=== PATIENT | male | born 1980 | race Caucasian/White ===

== ENCOUNTER 2018-01-23 13:35 | Emergency (ER) | payer OTHER ==
[2018-01-23] MEDS ORDERED: Sodium Chloride 0.9% 1,000 ML IV ONE (14:56)
--- NOTE | 2018-01-23 15:01 | C.PDOC ---
History Of Present Illness 37 year old male presents to ED complaining of right flank pain radiating to right groin associated with dysuria x3 days. Patient states he has a history of kidney stones, current pain feels similar to previous episodes. Patient reports he had blood work done by Dr. Shamir Patterson yesterday, has not had any imaging yet. He admits to nausea, but denies vomiting, diarrhea, testicular pain , fever, dysuria, hematuria. Time Seen by Provider: 01/23/18 14:43 Chief Complaint (Nursing): Male Genitourinary History Per: Patient History/Exam Limitations: no limitations Onset/Duration Of Symptoms: Days Current Symptoms Are (Timing): Still Present Severity: Moderate Quality Of Discomfort: "Pain" Recent travel outside of the [place]: No Past Medical History Reviewed: Historical Data, Nursing Documentation, Vital Signs Vital Signs: Last Vital Signs Temp 98.5 F 01/23/18 17:28 Pulse 70 01/23/18 17:28 Resp 16 01/23/18 17:28 BP 130/70 01/23/18 17:28 Pulse Ox 97 01/28/18 08:28 - Medical History PMH: Kidney Stones Surgical History: No Surg Hx Family History: States: No Known Family Hx - Social History Hx Alcohol Use: No Hx Substance Use: No Review Of Systems Constitutional: Negative for: Fever, Chills Cardiovascular: Negative for: Chest Pain Respiratory: Negative for: Shortness of Breath Gastrointestinal: Positive for: Nausea. Negative for: Vomiting, Diarrhea Genitourinary: Positive for: Dysuria. Negative for: Hematuria, Other ( testicular pain) Musculoskeletal: Positive for: Back Pain (right flank pain radiating to right groin. ) Physical Exam - Physical Exam Appears: Well, Non-toxic, Other (in moderate pain) Skin: Warm, Dry, No Rash Head: Normacephalic Eye(s): bilateral: Normal Inspection Oral Mucosa: Moist Neck: Supple Cardiovascular: Rhythm Regular Respiratory: Normal Breath Sounds, No Rales, No Rhonchi, No Wheezing Gastrointestinal/Abdominal: Bowel Sounds, Soft, Tenderness (right lower quadrant tenderness to palpation ), No Guarding, No Rebound Back: CVA Tenderness (right ) Neurological/Psych: Oriented x3 ED Course And Treatment - Laboratory Results Result Diagrams: 01/23/18 16:07 01/23/18 16:07 O2 Sat by Pulse Oximetry: 97 (RA) Pulse Ox Interpretation: Normal - CT Scan/US ct abd/pelvis Other Rad Studies (CT/US): Read By Radiologist, Radiology Report Reviewed CT/US Interpretation: Accession No. : [id number]. Patient Name / ID : DHAVAL Elaine / [id number]. Exam Date : 01/23/2018 15:36:42 ( Approved ). Study Comment : Sex / Age : M / 37Y. Creator : Ibrahima Fabian. Dictator : Leeann Ruano MD. Mechanic Marine Engine : Bone Puller : Leeann Ruano MD. Approver2 : Report Date : 01/23/2018 15:43:08. My Comment : . PROCEDURE: CT Abdomen and Pelvis without Oral or IV contrast. HISTORY: right flank and rlq pain, r/o kidney stone. COMPARISON: None available. TECHNIQUE: Contiguous axial images of the abdomen and pelvis. No oral or IV contrast administered. Coronal and Sagittal reformats generated and reviewed. Radiation dose: Total exam DLP = 729.07 mGy-cm. This CT exam was performed using one or more of the following dose reduction techniques: Automated exposure control, adjustment of the mA and/or kV according to patient size, and/or use of iterative reconstruction technique. FINDINGS: There is limited evaluation of the solid organs without the administration of IV contrast. LOWER THORAX: No visible consolidation, pleural effusion, or pneumothorax. LIVER: Unremarkable unenhanced appearance. GALLBLADDER AND BILE DUCTS: Cholelithiasis. PANCREAS: Unremarkable unenhanced appearance. SPLEEN: Unremarkable unenhanced appearance. ADRENALS: Unremarkable unenhanced appearance. KIDNEYS AND URETERS : 6 mm distal right obstructing ureteral calculus with proximal hydroureter and hydronephrosis. Additional nonobstructing coarse calculi involving bilateral kidneys. No left-sided hydronephrosis. BLADDER: Urinary bladder appears thick walled, likely exaggerated by under distension. REPRODUCTIVE: Unremarkable. APPENDIX: The appendix appears within normal limits of caliber. No secondary signs of acute appendicitis. BOWEL: The stomach is nondistended. Lack of oral contrast limits evaluation for bowel pathology. The bowel loops appear within normal limits of caliber without evidence of intestinal obstruction. Moderate constipation. PERITONEUM: No significant free fluid. No definite free air. LYMPH NODES: No bulky lymphadenopathy identified. VASCULATURE: No aortic aneurysm. BONES: No acute osseous abnormality is detected. OTHER FINDINGS: None. IMPRESSION: 6 mm distal right obstructing ureteral calculus with proximal hydroureter and hydronephrosis. Additional nonobstructing coarse calculi involving bilateral kidneys. Cholelithiasis. Moderate constipation. Urinary bladder appears thick walled, likely exaggerated by under distension. Additional findings as above. Progress Note: Blood work, UA, CT can abd/pelvis ordered and reviewed. Patient given IV NS bolus, IV toradol and IV zofran. CT scan shows 6mm stone right side with hydronephrosis - patient offered admission but prefers to go home and try to pass stone. PO Flomax given. Reevaluation Time: 17:15 Reassessment Condition: Improved (Patient reassessed, is resting comfortably and states pain has resolved. Patient given Rxs for Flomax, Vicodin and instructed to follow up with urology within 1 week. He understands he should return to ED if symptoms worsen.) Disposition Counseled Patient/Family Regarding: Studies Performed, Diagnosis, Need For Followup, Rx Given - Disposition Referrals: Sandip Knox MD [Staff Provider] - Marcel Simon Jr., MD [Staff Provider] - Disposition: HOME/ ROUTINE Disposition Time: 17:15 Condition: STABLE Additional Instructions: FOLLOW UP WITH YOUR DOCTOR IN 1-2 DAYS, AND WITH UROLOGY WITHIN 1 WEEK USE MEDICATIONS DIRECTED DRINK PLENTY OF FLUIDS RETURN TO ER IF SYMPTOMS WORSEN Prescriptions: Hydrocodone/Acetaminophen [Hydrocodone-Acetamin 5-325 mg] 1 each PO Q6 PRN #15 tablet PRN Reason: PAIN Tamsulosin [Flomax] 0.4 mg PO DAILY #5 cap Instructions: Kidney Stones (DC), Hydronephrosis, Adult (DC) Forms: [employer] (Vietnamese) Print Language: AMERICAN - Clinical Impression Clinical Impression: Kidney stone on right side, Hydronephrosis - Scribe Statement The provider has reviewed the documentation as recorded by the Scribe Sahib Ag Provider Attestation: All medical record entries made by the Terese were at my direction and personally dictated by me. I have reviewed the chart and agree that the record accurately reflects my personal performance of the history, physical exam, medical decision making, and the department course for this patient. I have also personally directed, reviewed, and agree with the discharge instructions and disposition.
[2018-01-23 15:39] LABS: URINE BACTERIA RARE (<OCC); URINE BILIRUBIN NEGATIVE (NEGATIVE); URINE BLOOD NEGATIVE (NEGATIVE); URINE CLARITY Clear (Clear); URINE COLOR Straw (YELLOW); URINE GLUCOSE (UA) NORMAL (Normal); URINE LEUKOCYTE ESTERASE NEG Leu/uL (Negative); URINE PROTEIN NEGATIVE (NEGATIVE); URINE UROBILINOGEN NORMAL mg/dL (0.2-1.0)
[2018-01-23] MEDS ORDERED: Sodium Chloride 0.9% 1,000 ML ONE (15:51)
--- NOTE | 2018-01-23 15:52 | CT ---
PROCEDURE: CT Abdomen and Pelvis without Oral or IV contrast. HISTORY: right flank and rlq pain, r/o kidney stone COMPARISON: None available TECHNIQUE: Contiguous axial images of the abdomen and pelvis. No oral or IV contrast administered. Coronal and Sagittal reformats generated and reviewed. Radiation dose: Total exam DLP = 729.07 mGy-cm. This CT exam was performed using one or more of the following dose reduction techniques: Automated exposure control, adjustment of the mA and/or kV according to patient size, and/or use of iterative reconstruction technique. FINDINGS: There is limited evaluation of the solid organs without the administration of IV contrast. LOWER THORAX: No visible consolidation, pleural effusion, or pneumothorax. LIVER: Unremarkable unenhanced appearance. GALLBLADDER AND BILE DUCTS: Cholelithiasis. PANCREAS: Unremarkable unenhanced appearance. SPLEEN: Unremarkable unenhanced appearance. ADRENALS: Unremarkable unenhanced appearance. KIDNEYS AND URETERS: 6 mm distal right obstructing ureteral calculus with proximal hydroureter and hydronephrosis. Additional nonobstructing coarse calculi involving bilateral kidneys. No left-sided hydronephrosis. BLADDER: Urinary bladder appears thick walled, likely exaggerated by under distension. REPRODUCTIVE: Unremarkable. APPENDIX: The appendix appears within normal limits of caliber. No secondary signs of acute appendicitis. BOWEL: The stomach is nondistended. Lack of oral contrast limits evaluation for bowel pathology. The bowel loops appear within normal limits of caliber without evidence of intestinal obstruction. Moderate constipation. PERITONEUM: No significant free fluid. No definite free air. LYMPH NODES: No bulky lymphadenopathy identified. VASCULATURE: No aortic aneurysm. BONES: No acute osseous abnormality is detected. OTHER FINDINGS: None. IMPRESSION: 6 mm distal right obstructing ureteral calculus with proximal hydroureter and hydronephrosis. Additional nonobstructing coarse calculi involving bilateral kidneys. Cholelithiasis. Moderate constipation. Urinary bladder appears thick walled, likely exaggerated by under distension. Additional findings as above.
[2018-01-23 16:13] LABS: BASO % 0.9 % (0.0-2.0); EOS # 0.2 K/uL (0.0-0.7); HEMOGLOBIN 14.6 g/dL (12.0-18.0); LYMPH # 2.8 K/uL (1.0-4.3); LYMPH % 55.3 % (20.0-40.0); MEAN CELL VOLUME 86.8 fL (80.0-94.0); MEAN CORPUSCULAR HGB CONC 34.5 g/dL (33.0-37.0); MEAN PLATELET VOLUME 7.5 fL (7.2-11.7); MONO # 0.4 K/uL (0.0-0.8); NEUT # 1.5 K/uL (1.8-7.0); NEUT % 30.8 % (50.0-75.0); NRBC % 0.2 % (0.0-2.0); RBC 4.89 Mil/uL (4.40-5.90); RED CELL DISTRIBUTION WIDTH 13.1 % (11.5-14.5)
[2018-01-23 16:23] LABS: ALB/GLOB RATIO 1.5 (1.0-2.1); ALBUMIN 4.5 g/dL (3.5-5.0); ALT/SGPT 39 U/L (21-72); AST/SGOT 24 U/L (17-59); BLOOD UREA NITROGEN 13 mg/dL (9-20); CALCIUM 9.5 mg/dl (8.6-10.4); GFR NON-AFRICAN AMERICAN > 60
[2018-01-23 17:28] VITALS: BP 130/70; PULSE 70; RESP 16; TEMP 98.5
[2018-01-23 18:10] VITALS: O2SAT 97
== END 2018-01-23 17:27 | disposition home or self-care (01) ==
LOC: C.ER 13:35
DX: N13.2 Hydronephrosis with renal and ureteral calculous obstruction (principal); Z87.442 Personal history of urinary calculi
CPT/HCPCS: 74176; 80053; 81001; 85025; 87086; 96361; 96374; 96375; 99283; J1885; J2405; J7030

== ENCOUNTER 2018-09-12 07:57 | Emergency (ER) | payer OTHER ==
[2018-09-12] MEDS ORDERED: Sodium Chloride 0.9% 1,000 ML IV ONE (08:45)
--- NOTE | 2018-09-12 08:52 | C.PDOC ---
History Of Present Illness 38 y/o male withhx right kidney stone in jan 2018 c/o sudden onset burning pain to right side abdomen 3 hours ago with nausea and one episode vomiting. pain radiates all over abdomen per pt from right side, feels different than kidney stone in past. no fever,. denies urinary symptoms. Time Seen by Provider: 09/12/18 08:11 Chief Complaint (Nursing): Abdominal Pain History Per: Patient History/Exam Limitations: no limitations Onset/Duration Of Symptoms: Hrs (3) Current Symptoms Are (Timing): Still Present Severity: Moderate Location Of Pain/Discomfort: RUQ, RLQ Quality Of Discomfort: Burning Associated Symptoms: Nausea, Vomiting. denies: Fever, Chills, Diarrhea, Urinary Symptoms Past Medical History Reviewed: Historical Data, Nursing Documentation, Vital Signs Vital Signs: Last Vital Signs Temp 97.8 F 09/12/18 08:04 Pulse 60 09/12/18 08:04 Resp 20 09/12/18 08:04 BP 130/85 09/12/18 08:04 Pulse Ox 100 09/12/18 08:04 - Medical History PMH: Kidney Stones, Chronic Kidney Disease Family History: States: Unknown Family Hx - Social History Hx Alcohol Use: No Hx Substance Use: No Review Of Systems Constitutional: Negative for: Fever, Chills Cardiovascular: Negative for: Chest Pain Respiratory: Negative for: Cough, Shortness of Breath Gastrointestinal: Positive for: Nausea, Vomiting, Abdominal Pain. Negative for: Diarrhea Genitourinary: Negative for: Dysuria, Frequency, Hematuria Skin: Negative for: Rash Physical Exam - Physical Exam Appears: Non-toxic, Other (uncomfortable) Skin: Warm, Dry Head: Atraumatic, Normacephalic Eye(s): bilateral: Normal Inspection Neck: Supple Cardiovascular: Rhythm Regular, No Murmur Respiratory: No Decreased Breath Sounds, No Rales, No Rhonchi, No Wheezing Gastrointestinal/Abdominal: Bowel Sounds, Soft, No Tenderness, No Distention, No Guarding, No Rebound Back: No CVA Tenderness Extremity: No Tenderness, No Swelling ED Course And Treatment - Laboratory Results Result Diagrams: 09/12/18 09:05 09/12/18 09:05 O2 Sat by Pulse Oximetry: 100 Medical Decision Making Medical Decision Making: pt with right side sudden onset ab pain; hx 6 mm right stone in jan 2018. +nausea, no urinary symptoms. labs normal, few rbc in urine, will get ct scan to eval for stone. 1231 pt with acute cholecystitis on sonogram. discussed ct and sono results with Dr Jarrett, (surgical lead); she will come see patient. pt has no tenderness on exam, in no distress, with normal labs. [address] Jarrett from surgery. pt to be sent home with cipro and flagyl for one week. f/u Dr Hemphill';s office outpatient. Disposition Discussed With Dr.: Neville Hemphill Doctor Will See Patient In The: Office Counseled Patient/Family Regarding: Studies Performed, Diagnosis, Need For Followup, Rx Given - Disposition Referrals: Neville Hemphill MD [Staff Provider] - Disposition: HOME/ ROUTINE Disposition Time: 13:23 Condition: IMPROVED Additional Instructions: Follow up with Dr Hemphill for your gallbladder. Call his office to make an appointment. Avoid greasy, fried foods. Eat bland, plain foods. Motrin for pain if needed. Return to ER for worse pain, fever, vomiting or any other concerns. Prescriptions: Ciprofloxacin [Cipro] 500 mg PO BID #14 tab Metronidazole [Flagyl] 500 mg PO TID #21 tablet Instructions: Gallstones (DC), Low Cholesterol, Saturated Fat, and Trans Fat Diet Forms: General Discharge Instructions, [facility] (Surinamese) - Clinical Impression Clinical Impression: Biliary colic
[2018-09-12 09:09] LABS: BASO # 0.1 K/uL (0.0-0.2); BASO % 1.2 % (0.0-2.0); EOS # 0.3 K/uL (0.0-0.7); EOS % 6.7 % (0.0-4.0); HEMOGLOBIN 14.1 g/dL (12.0-18.0); LYMPH # 2.5 K/uL (1.0-4.3); LYMPH % 48.3 % (20.0-40.0); MEAN CELL VOLUME 86.2 fL (80.0-94.0); MEAN CORPUSCULAR HEMOGLOBIN 30.1 pg (27.0-31.0); MEAN CORPUSCULAR HGB CONC 34.9 g/dL (33.0-37.0); MEAN PLATELET VOLUME 7.5 fL (7.2-11.7); MONO # 0.3 K/uL (0.0-0.8); MONO % 6.2 % (0.0-10.0); NEUT # 1.9 K/uL (1.8-7.0); NEUT % 37.6 % (50.0-75.0); NRBC % 0.2 % (0.0-2.0); RBC 4.69 Mil/uL (4.40-5.90); RED CELL DISTRIBUTION WIDTH 13.1 % (11.5-14.5); WHITE BLOOD COUNT 5.1 K/uL (4.8-10.8)
[2018-09-12 09:21] LABS: ALB/GLOB RATIO 2.1 (1.0-2.1); ALBUMIN 4.8 g/dL (3.5-5.0); ALT/SGPT 15 U/L (21-72); AST/SGOT 21 U/L (17-59); BLOOD UREA NITROGEN 16 mg/dL (9-20); CALCIUM 9.6 mg/dl (8.6-10.4); GFR NON-AFRICAN AMERICAN > 60
[2018-09-12 09:30] LABS: URINE BACTERIA RARE (<OCC); URINE BILIRUBIN NEGATIVE (NEGATIVE); URINE BLOOD NEGATIVE (NEGATIVE); URINE CLARITY Hazy (Clear); URINE COLOR Yellow (YELLOW); URINE GLUCOSE (UA) NORMAL (Normal); URINE LEUKOCYTE ESTERASE NEG Leu/uL (Negative); URINE PROTEIN NEGATIVE (NEGATIVE); URINE UROBILINOGEN NORMAL mg/dL (0.2-1.0)
--- NOTE | 2018-09-12 10:54 | CT ---
Date of service: 09/12/2018 PROCEDURE: CT Abdomen and Pelvis without intravenous contrast HISTORY: Bilateral flank pain, history of renal stones COMPARISON: 01/23/2018. TECHNIQUE: CT scan of the abdomen and pelvis was performed without administration of intravenous contrast. Oral contrast was not administered. Coronal and sagittal reformatted images were obtained. Radiation dose: Total exam DLP = 642.22 mGy-cm. This CT exam was performed using one or more of the following dose reduction techniques: Automated exposure control, adjustment of the mA and/or kV according to patient size, and/or use of iterative reconstruction technique. FINDINGS: LOWER THORAX: The visualized lungs are clear. LIVER: Normal in size. No gross lesion or ductal dilatation. GALLBLADDER AND BILE DUCTS: The gallbladder is distended. There are large peripherally calcified gallstones. There is mild gallbladder wall thickening and edema there is also small pericholecystic fluid.. PANCREAS: Normal in size. No gross lesion or ductal dilatation. SPLEEN: Normal in size. ADRENALS: Normal in size. No discrete nodule. KIDNEYS AND URETERS: Both kidneys are normal in size. Again seen are multiple nonobstructing stones in both kidneys, the largest in the left upper pole measures 10 mm. No hydronephrosis. VASCULATURE: Normal in caliber. No aortic aneurysm. No aortic atherosclerotic calcification or mural plaque present. BOWEL: Evaluation of the bowel is limited in the absence of oral contrast. The small bowel loops are normal in caliber. The colon is normal in size. No bowel dilatation or wall thickening. No bowel obstruction. APPENDIX: Normal appendix. PERITONEUM: No free fluid. No free air. LYMPH NODES: No enlarged lymph nodes. BLADDER: Well distended and normal in appearance. REPRODUCTIVE: The prostate gland is normal in size. BONES: No acute fracture. Within normal limits for the patient's age. OTHER FINDINGS: None. IMPRESSION: 1. Findings are concerning for acute calculus cholecystitis. Please correlate with right upper quadrant ultrasound. 2. Nonobstructing stones in both kidneys, the largest in the left upper pole measures 10 mm.
--- NOTE | 2018-09-12 11:53 | US ---
Date of service: 09/12/2018 HISTORY: eval for cholecystitis COMPARISON: CT abdomen and pelvis performed earlier the same day. TECHNIQUE: Sonographic evaluation of the right upper quadrant of the abdomen. FINDINGS: LIVER: Measures 17.4 cm in length. There is diffuse increased echogenicity of the liver parenchyma. No mass. No intrahepatic bile duct dilatation. GALLBLADDER: The gallbladder is distended. There are gallstones and layering sludge. There is mild diffuse gallbladder wall thickening which measures 5 mm and mild pericholecystic fluid.. The sonographic Wahl's sign is negative. COMMON BILE DUCT: Measures 3.0 mm. No stones. No dilatation. PANCREAS: Unremarkable as visualized. No mass. No ductal dilatation. RIGHT KIDNEY: Measures 11.2 cm in length. Normal echogenicity. There are at least 4 nonobstructing stones, the largest in the interpolar region measures 1.3 cm. No calculus, mass, or hydronephrosis. AORTA: No aneurysmal dilatation. IVC: Unremarkable. OTHER FINDINGS: None . IMPRESSION: 1. Gallbladder distention, cholelithiasis, gallbladder wall thickening/edema and pericholecystic fluid are concerning for acute calculus cholecystitis. 2. Nonobstructing stones in the right kidney, the largest in the interpolar region measures 1.3 cm. 3. Mild hepatomegaly and fatty liver.
[2018-09-12 12:14] VITALS: BP 110/69; PULSE 61; RESP 18; TEMP 98.5
[2018-09-12 12:32] VITALS: O2SAT 100
--- NOTE | 2018-09-12 12:56 | CP.PCM.CON ---
History of Present Illness - History of Present Illness History of Present Illness: General Surgery consult: Dr. Adrian Hemphill Patient is a 38 M with PMH kidney stones presenting with several hours of mild RUQ burning that has now improved with pepcid. he denies n/v, f/c, current abdominal pain and any previous episodes like this. He is resting comfortably on exam and denies any symptoms at this time. Upon discussion patient is refusing surgical intervention at this time. 12 point ROS otherwise negative PMH: kidney stones PSH: denies Social: smokes 1/2 ppd, denies ETOH, drug use medications: none PMD: none Review of Systems - Review of Systems All systems: reviewed and no additional remarkable complaints except (as per HPI) Past Patient History - Past Social History Smoking Status: Light Smoker < 10 Cigarettes Daily - RENAL Hx Chronic Kidney Disease: Yes Hx Kidney Stones: Yes - PSYCHIATRIC Hx Substance Use: No - SURGICAL HISTORY Hx Surgeries: No - ANESTHESIA Hx Anesthesia: No Meds Allergies/Adverse Reactions: Allergies Allergy/AdvReac Type Severity Reaction Status Date / Time No Known Allergies Allergy Verified 01/23/18 14:41 Physical Exam - Constitutional Appears: Well, Non-toxic, No Acute Distress - Head Exam Head Exam: ATRAUMATIC, NORMOCEPHALIC - Eye Exam Eye Exam: EOMI - ENT Exam ENT Exam: Mucous Membranes Moist - Respiratory Exam Respiratory Exam: NORMAL BREATHING PATTERN - Cardiovascular Exam Cardiovascular Exam: REGULAR RHYTHM - GI/Abdominal Exam GI & Abdominal Exam: Soft. absent: Distended, Guarding, Tenderness Additional comments: ferrari's negative - Extremities Exam Extremities exam: Negative for: calf tenderness, pedal edema - Back Exam Back exam: absent: CVA tenderness (L), CVA tenderness (R) - Neurological Exam Neurological exam: Alert, Oriented x3 - Psychiatric Exam Psychiatric exam: Normal Affect, Normal Mood - Skin Skin Exam: Dry, Intact, Normal Color, Warm Results - Vital Signs Recent Vital Signs: Last Vital Signs Temp 98.5 F 09/12/18 12:13 Pulse 61 09/12/18 12:13 Resp 18 09/12/18 12:13 BP 110/69 09/12/18 12:13 Pulse Ox 100 09/12/18 12:32 - Labs Result Diagrams: 09/12/18 09:05 09/12/18 09:05 Labs: Laboratory Results - last 24 hr 09/12/18 09/12/18 09/12/18 09:05 09:05 09:19 WBC 5.1 RBC 4.69 Hgb 14.1 Hct 40.5 MCV 86.2 MCH 30.1 MCHC 34.9 RDW 13.1 Plt Count 256 MPV 7.5 Neut % (Auto) 37.6 L Lymph % (Auto) 48.3 H [place] % (Auto) 6.2 Eos % (Auto) 6.7 H Baso % (Auto) 1.2 Neut # (Auto) 1.9 Lymph # (Auto) 2.5 [place] # (Auto) 0.3 Eos # (Auto) 0.3 Baso # (Auto) 0.1 Sodium 139 Potassium 4.2 Chloride 106 Carbon Dioxide 29 Anion Gap 8 L BUN 16 Creatinine 0.8 Est GFR ( Amer) > 60 Est GFR (Non-Af Amer) > 60 Random Glucose 100 Calcium 9.6 Total Bilirubin 0.3 AST 21 ALT 15 L D Alkaline Phosphatase 78 Total Protein 7.1 Albumin 4.8 Globulin 2.3 Albumin/Globulin Ratio 2.1 Urine Color Yellow Urine Clarity Hazy Urine pH 5.0 Ur Specific [place] 1.025 Urine Protein Negative Urine Glucose (UA) Normal Urine Ketones Negative Urine Blood Negative Urine Nitrate Negative Urine Bilirubin Negative Urine Urobilinogen Normal Ur Leukocyte Esterase Neg Urine WBC (Auto) 2 Urine RBC (Auto) 1 Urine Bacteria Rare Assessment & Plan - Assessment and Plan (Free Text) Assessment: 38 M with likely episode of biliary colic Plan: - d/t lack of abdominal pain/tenderness, no leukocytosis, nonelevated bilirubin, afebrile, cholecytitis unlikely - patient is refusing surgical intervention at this time - ciprofloxacin and flagyl x 5 days - patient may f/u in office with Dr. Hemphill for future surgical planning - discussed with Dr. artur Jarrett, PGY 1 - Date & Time Date: 09/12/18 Time: 12:45
== END 2018-09-12 14:02 | disposition home or self-care (01) ==
LOC: C.ER 07:57
DX: K80.50 Calculus of bile duct without cholangitis or cholecystitis without obstruction (principal)
CPT/HCPCS: 74176; 76705; 80053; 81001; 85025; 87086; 96361; 96374; 99285; J7030

== ENCOUNTER 2018-10-18 09:06 | Observation (INO) | payer OTHER ==
[2018-10-18] MEDS ORDERED: Sodium Chloride 0.9% 1,000 ML IV STA (09:25)
[2018-10-18] MEDS ORDERED: Sodium Chloride 0.9% 1,000 ML ONE (09:35)
[2018-10-18 09:54] LABS: EOS # 0.3 K/uL (0.0-0.7); EOS % 6.5 % (0.0-4.0); HEMOGLOBIN 14.1 g/dL (12.0-18.0); LYMPH # 2.9 K/uL (1.0-4.3); LYMPH % 59.6 % (20.0-40.0); MEAN CORPUSCULAR HEMOGLOBIN 29.8 pg (27.0-31.0); MEAN CORPUSCULAR HGB CONC 34.6 g/dL (33.0-37.0); MONO # 0.3 K/uL (0.0-0.8); MONO % 7.1 % (0.0-10.0); NEUT # 1.2 K/uL (1.8-7.0); NEUT % 25.8 % (50.0-75.0); NRBC % 0.2 % (0.0-2.0); RBC 4.72 Mil/uL (4.40-5.90); RED CELL DISTRIBUTION WIDTH 13.2 % (11.5-14.5); WHITE BLOOD COUNT 4.8 K/uL (4.8-10.8)
[2018-10-18 10:09] LABS: ALB/GLOB RATIO 1.4 (1.0-2.1); ALBUMIN 4.2 g/dL (3.5-5.0); ALT/SGPT 15 U/L (21-72); AST/SGOT 17 U/L (17-59); BLOOD UREA NITROGEN 16 mg/dL (9-20); CALCIUM 9.2 mg/dl (8.6-10.4); GFR NON-AFRICAN AMERICAN > 60; LIPASE 203 U/L (23-300)
--- NOTE | 2018-10-18 10:45 | C.PDOC ---
History Of Present Illness 38 y/o male presents to ED stating he woke up today with pain to his right flank and RUQ, with one episode of vomiting. States he has history of gallstones and kidney stones. Denies back pain, nausea, diarrhea, or urinary symptoms. Time Seen by Provider: 10/18/18 09:13 Chief Complaint (Nursing): Abdominal Pain History Per: Patient History/Exam Limitations: no limitations Onset/Duration Of Symptoms: Hrs Current Symptoms Are (Timing): Still Present Past Medical History Reviewed: Historical Data, Nursing Documentation, Vital Signs Vital Signs: Last Vital Signs Temp 97.6 F 10/18/18 09:10 Pulse 58 L 10/18/18 09:10 Resp 18 10/18/18 09:10 BP 118/82 10/18/18 09:10 Pulse Ox 98 10/18/18 09:10 Primary Care Provider: Non [facility] Provider, - Medical History PMH: Kidney Stones, Chronic Kidney Disease Family History: States: No Known Family Hx - Social History Hx Alcohol Use: No Hx Substance Use: No Review Of Systems Except As Marked, All Systems Reviewed And Found Negative. Constitutional: Negative for: Fever, Chills Cardiovascular: Negative for: Chest Pain Gastrointestinal: Positive for: Abdominal Pain (RUQ and flank pain). Negative for: Nausea, Vomiting, Diarrhea Genitourinary: Negative for: Dysuria, Hematuria Musculoskeletal: Negative for: Back Pain Physical Exam - Physical Exam Appears: Non-toxic, No Acute Distress Skin: Warm, Dry Head: Normacephalic Eye(s): bilateral: Normal Inspection Oral Mucosa: Moist Neck: Supple Cardiovascular: Rhythm Regular, No Murmur Respiratory: Normal Breath Sounds, No Rales, No Rhonchi, No Wheezing Gastrointestinal/Abdominal: Soft, Tenderness (RUQ), No Distention, No Guarding, No Rebound Back: No CVA Tenderness Extremity: No Pedal Edema Extremity: Bilateral: Normal Color And Temperature Neurological/Psych: Oriented x3, Normal Speech ED Course And Treatment - Laboratory Results Result Diagrams: 10/18/18 09:39 10/18/18 09:39 Lab Results: Total Bilirubin 0.3 mg/dL (0.2-1.3) 10/18/18 09:39 AST 17 U/L (17-59) 10/18/18 09:39 ALT 15 U/L (21-72) L 10/18/18 09:39 Alkaline Phosphatase 70 U/L (38-126) 10/18/18 09:39 Total Protein 7.1 g/dL (6.3-8.3) 10/18/18 09:39 Albumin 4.2 g/dL (3.5-5.0) 10/18/18 09:39 Globulin 3.0 gm/dL (2.2-3.9) 10/18/18 09:39 Albumin/Globulin Ratio 1.4 (1.0-2.1) 10/18/18 09:39 Lipase 203 U/L (23-300) 10/18/18 09:39 O2 Sat by Pulse Oximetry: 98 (RA) Pulse Ox Interpretation: Normal - CT Scan/US Abdomen US Other Rad Studies (CT/US): Read By Radiologist, Radiology Report Reviewed CT/US Interpretation: FINDINGS: LIVER: Measures 18.2 cm in length. Heterogeneous increased echogenicity of the liver parenchyma. No mass. No intrahepatic bile duct dilatation. GALLBLADDER: Gallstone is again noted. The gallbladder wall thickening is 3.5 millimeter. No evidence of pericholecystic fluid. COMMON BILE DUCT: Measures 4 mm. No stones. No dilatation. PANCREAS: The pancreas is obscured by overlying bowel gas. RIGHT KIDNEY: Measures 11 x 5 x 5.5 cm in length. There is a echogenic focus likely represent nonobstructing stone at the midpole of the right kidney measures 0.8 centimeter. No evidence of hydronephrosis. There are also additional nonobstructing right renal calculi noted. AORTA: No aneurysmal dilatation. IVC: Unremarkable. OTHER FINDINGS: None . IMPRESSION: Gallstone at the gallbladder neck. No definite ultrasound evidence of acute cholecystitis. Multiple nonobstructing right renal calculi. Echogenic liver. Progress Note: Abdomen US and UA ordered. Labs sent. Patient given toradol, IV fluids, and zofran. On re-evaluation patient still c/o RUQ pain. Called surgery for consult. recommended to admit patient to [facility] for surgical treatment. case was d/w who accepted patient to [facility]. Disposition - Disposition Disposition: HOSPITALIZED Disposition Time: 14:06 Condition: FAIR - Clinical Impression Clinical Impression: Biliary colic, Cholelithiasis - PA / MOLDING PLASTERER / Resident Statement MD/ has reviewed & agrees with the documentation as recorded. - Scribe Statement The provider has reviewed the documentation as recorded by the Scribe Dorothy Giordano All medical record entries made by the Christianaibe were at my direction and personally dictated by me. I have reviewed the chart and agree that the record accurately reflects my personal performance of the history, physical exam, medical decision making, and the department course for this patient. I have also personally directed, reviewed, and agree with the discharge instructions and disposition. Decision To Admit - Pt Status Changed To: Hospital Disposition Of: Observation - . Bed Request Type: Regular Admitting Physician: Tiffany Kevin Patient Diagnosis: Biliary colic, Cholelithiasis
[2018-10-18 11:13] LABS: SQUAMOUS EPITHIAL < 1 /hpf (0-5); URINE BILIRUBIN NEGATIVE (NEGATIVE); URINE BLOOD NEGATIVE (NEGATIVE); URINE CLARITY Clear (Clear); URINE COLOR Yellow (YELLOW); URINE GLUCOSE (UA) NORMAL (Normal); URINE LEUKOCYTE ESTERASE TRACE Leu/uL (Negative); URINE PROTEIN NEGATIVE (NEGATIVE); URINE UROBILINOGEN NORMAL mg/dL (0.2-1.0)
--- NOTE | 2018-10-18 13:09 | US ---
Date of service: 10/18/2018 HISTORY: RUQ and R flank pain, h/o kidney and GB stones COMPARISON: Comparison is made with the previous CT dated 09/12/2018 previous ultrasound dated 09/12/2018 TECHNIQUE: Sonographic evaluation of the right upper quadrant of the abdomen. FINDINGS: LIVER: Measures 18.2 cm in length. Heterogeneous increased echogenicity of the liver parenchyma. No mass. No intrahepatic bile duct dilatation. GALLBLADDER: Gallstone is again noted. The gallbladder wall thickening is 3.5 millimeter. No evidence of pericholecystic fluid. COMMON BILE DUCT: Measures 4 mm. No stones. No dilatation. PANCREAS: The pancreas is obscured by overlying bowel gas. RIGHT KIDNEY: Measures 11 x 5 x 5.5 cm in length. There is a echogenic focus likely represent nonobstructing stone at the midpole of the right kidney measures 0.8 centimeter. No evidence of hydronephrosis. There are also additional nonobstructing right renal calculi noted. AORTA: No aneurysmal dilatation. IVC: Unremarkable. OTHER FINDINGS: None . IMPRESSION: Gallstone at the gallbladder neck. No definite ultrasound evidence of acute cholecystitis. Multiple nonobstructing right renal calculi. Echogenic liver.
--- NOTE | 2018-10-18 14:07 | CP.PCM.CON ---
History of Present Illness - History of Present Illness History of Present Illness: Surgery Consult Note. Dr. Senior 38yo M with no significant PMHx here for evaluation of RUQ pain. Pain started last night, described as sharp, does not radiate. Denies any fevers or chills. Admits to having nausea and vomiting x 1 yesterday, non-bilious, non-bloody. States that he has had similar episodes in the past. This is the 3rd episode over the past 6 months. He also reports bilateral kidney stones, but this pain is different. Currently, denies any urinary complaints. Abd US: GB stone in neck of gallbladder; GB wall 3.5mm; CBD 4mm, no cbd stones; No evidence of perichole fluid. PMHx: Kidney Stones PSHx: Denies Family Hx: Non-contributory Social Hx: Admits to 1/2 ppd tobacco use. Denies ETOH use, Denies Illicit drugs NKDA Review of Systems - Review of Systems All systems: reviewed and no additional remarkable complaints except - Constitutional Constitutional: Anorexia. absent: Chills, Fever - EENT Eyes: absent: Change in Vision, Discharge Nose/Mouth/Throat: absent: Nasal Congestion - Cardiovascular Cardiovascular: absent: Chest Pain, Dyspnea - Respiratory Respiratory: absent: Cough, Dyspnea - Gastrointestinal Gastrointestinal: Abdominal Pain, Nausea, Vomiting. absent: Hematemesis, Hematochezia, Melena - Genitourinary Genitourinary: absent: Change in Urinary Stream, Difficulty Urinating, Dysuria - Musculoskeletal Musculoskeletal: absent: Back Pain - Neurological Neurological: absent: Dizziness, Numbness - Psychiatric Psychiatric: absent: Anxiety Past Patient History - Past Medical History & Family History Past Family History: Reviewed and not pertinent - Past Social History Smoking Status: Light Smoker < 10 Cigarettes Daily Alcohol: None Drugs: Denies - RENAL Hx Chronic Kidney Disease: Yes Hx Kidney Stones: Yes - PSYCHIATRIC Hx Substance Use: No - SURGICAL HISTORY Hx Surgeries: No - ANESTHESIA Hx Anesthesia: No Meds Allergies/Adverse Reactions: Allergies Allergy/AdvReac Type Severity Reaction Status Date / Time No Known Allergies Allergy Verified 10/18/18 09:12 Physical Exam - Constitutional Appears: Well, Non-toxic, No Acute Distress - Head Exam Head Exam: ATRAUMATIC, NORMAL INSPECTION, NORMOCEPHALIC - Eye Exam Eye Exam: EOMI, Normal appearance. absent: Scleral icterus - ENT Exam ENT Exam: Mucous Membranes Moist - Respiratory Exam Respiratory Exam: NORMAL BREATHING PATTERN. absent: Accessory Muscle Use, Respiratory Distress - Cardiovascular Exam Cardiovascular Exam: RRR. absent: JVD - GI/Abdominal Exam GI & Abdominal Exam: Soft. absent: Distended, Firm, Guarding, Rebound, Rigid, Tenderness - Extremities Exam Extremities exam: Positive for: normal inspection. Negative for: calf tenderness - Back Exam Back exam: NORMAL INSPECTION. absent: CVA tenderness (L), CVA tenderness (R) - Neurological Exam Neurological exam: Alert, Oriented x3 - Psychiatric Exam Psychiatric exam: Normal Affect, Normal Mood - Skin Skin Exam: Dry, Intact, Normal Color, Warm Results - Vital Signs Recent Vital Signs: Last Vital Signs Temp 97.6 F 10/18/18 12:00 Pulse 60 10/18/18 12:00 Resp 20 10/18/18 12:00 BP 108/69 10/18/18 12:00 Pulse Ox 98 10/18/18 14:07 - Labs Result Diagrams: 10/18/18 09:39 10/18/18 09:39 Labs: Laboratory Results - last 24 hr 10/18/18 10/18/18 10/18/18 09:39 09:39 10:55 WBC 4.8 RBC 4.72 Hgb 14.1 Hct 40.6 MCV 86.0 MCH 29.8 MCHC 34.6 RDW 13.2 Plt Count 217 MPV 8.0 Neut % (Auto) 25.8 L Lymph % (Auto) 59.6 H [place] % (Auto) 7.1 Eos % (Auto) 6.5 H Baso % (Auto) 1.0 Neut # (Auto) 1.2 L Lymph # (Auto) 2.9 [place] # (Auto) 0.3 Eos # (Auto) 0.3 Baso # (Auto) 0.0 Sodium 138 Potassium 3.6 Chloride 105 Carbon Dioxide 22 Anion Gap 15 BUN 16 Creatinine 0.8 Est GFR ( Amer) > 60 Est GFR (Non-Af Amer) > 60 Random Glucose 113 H Calcium 9.2 Total Bilirubin 0.3 AST 17 ALT 15 L Alkaline Phosphatase 70 Total Protein 7.1 Albumin 4.2 Globulin 3.0 Albumin/Globulin Ratio 1.4 Lipase 203 Urine Color Yellow Urine Clarity Clear Urine pH 5.0 Ur Specific [place] 1.021 Urine Protein Negative Urine Glucose (UA) Normal Urine Ketones Negative Urine Blood Negative Urine Nitrate Negative Urine Bilirubin Negative Urine Urobilinogen Normal Ur Leukocyte Esterase Trace Urine WBC (Auto) 2 Urine RBC (Auto) 1 Ur Squamous Epith Cells < 1 Assessment & Plan - Assessment and Plan (Free Text) Assessment: 38yo M with symptomatic cholelithiasis Plan: - Admit to hospitalist team - CLD today; NPO past mn - Possible OR tomorrow, 10/19/18 - Consent obtained and on chart - Antiemetics as needed - pain control as needed - IV Abx Further recs as per Dr. Parrish Elizabeth PGY2 surgery
[2018-10-18] MEDS ORDERED: HYDROmorphone 0.5 mg/0.5 ml ISec IVP PRN (14:10)
--- NOTE | 2018-10-18 14:48 | CP.PCM.HP ---
<Zackery Arenas - Last Filed: 10/18/18 17:37> History of Present Illness - History of Present Illness History of Present Illness: Medicine History and Physical for Hospitalist Service, Dr. Kevin This is a 38 y o male with PMhx nephrolithiasis who presents to the ED with RUQ pain worsening since last evening. Pt states that this is the third time that he has had symptoms like this in the past 6 months, and was instructed on prior w/u to return to the ED if his symptoms recurred. States the pain woke him up this am from sleep. Currently denies any abd pain, but states that the pain was sharp and worsened after eating. States he has been avoiding fatty foods since his prior colic episodes. Denies fever, chills, chest pain, sob, n/v/d/c, urinary complaints, or other symptoms. PMhx: Nephrolithiasis (treated many years ago as per patient) PSurgHx: denies Allergies: NKDA Home meds: Fish oil tablets daily Fam hx: HTN and DM Soc hx: Smokes 1/2 ppd x 15 y; denies EtOH or illicit drug use. Works as a cook. PMD: none Present on Admission - Present on Admission Any Indicators Present on Admission: No Review of Systems - Constitutional Constitutional: Anorexia. absent: Chills, Fever, Headache, Weight Loss - EENT Eyes: absent: Change in Vision - Cardiovascular Cardiovascular: absent: Chest Pain, Diaphoresis, Dyspnea on Exertion, Leg Edema, Palpitations - Respiratory Respiratory: absent: Cough, Dyspnea, Dyspnea on Exertion, Wheezing - Gastrointestinal Gastrointestinal: Abdominal Pain. absent: Constipation, Diarrhea, Dysphagia, Early Satiety, Heartburn, Nausea, Vomiting - Genitourinary Genitourinary: absent: Change in Urinary Stream, Difficulty Urinating, Dysuria - Integumentary Integumentary: absent: Pruritus, Rash - Neurological Neurological: absent: Dizziness, Numbness, Headaches, Tingling, Tremor, Weakness Past Patient History - Past Medical History & Family History Past Family History: Reviewed and not pertinent - Past Social History Smoking Status: Light Smoker < 10 Cigarettes Daily Alcohol: None Drugs: Denies - RENAL Hx Chronic Kidney Disease: Yes Hx Kidney Stones: Yes - PSYCHIATRIC Hx Substance Use: No - SURGICAL HISTORY Hx Surgeries: No - ANESTHESIA Hx Anesthesia: No Meds Allergies/Adverse Reactions: Allergies Allergy/AdvReac Type Severity Reaction Status Date / Time No Known Allergies Allergy Verified 10/18/18 09:12 Physical Exam - Constitutional Appears: Non-toxic, No Acute Distress - Head Exam Head Exam: ATRAUMATIC, NORMOCEPHALIC - Eye Exam Eye Exam: EOMI, Normal appearance, PERRL - ENT Exam ENT Exam: Mucous Membranes Moist - Neck Exam Neck exam: Positive for: Full Rom, Normal Inspection. Negative for: Lymphadenopathy, Tenderness - Respiratory Exam Respiratory Exam: Clear to Auscultation Bilateral, NORMAL BREATHING PATTERN. absent: Rales, Rhonchi, Wheezes - Cardiovascular Exam Cardiovascular Exam: Bradycardia, REGULAR RHYTHM, +S1, +S2. absent: Gallop, Rubs, Systolic Murmur - GI/Abdominal Exam GI & Abdominal Exam: Normal Bowel Sounds, Soft. absent: Distended, Guarding, Organomegaly, Rebound, Tenderness Additional comments: Negative Wahl's sign, Neg Rovsing's sign - Extremities Exam Extremities exam: Positive for: full ROM, normal capillary refill, normal inspection, pedal pulses present. Negative for: pedal edema, tenderness - Neurological Exam Neurological exam: Alert, CN II-XII Intact, Oriented x3, Reflexes Normal - Skin Skin Exam: Dry, Intact, Normal Color, Warm Results - Vital Signs Recent Vital Signs: Last Vital Signs Temp 97.6 F 10/18/18 12:00 Pulse 60 10/18/18 12:00 Resp 20 10/18/18 12:00 BP 108/69 10/18/18 12:00 Pulse Ox 98 10/18/18 14:07 - Labs Result Diagrams: 10/18/18 09:39 10/18/18 09:39 Labs: Laboratory Results - last 24 hr 10/18/18 10/18/18 10/18/18 09:39 09:39 10:55 WBC 4.8 RBC 4.72 Hgb 14.1 Hct 40.6 MCV 86.0 MCH 29.8 MCHC 34.6 RDW 13.2 Plt Count 217 MPV 8.0 Neut % (Auto) 25.8 L Lymph % (Auto) 59.6 H [place] % (Auto) 7.1 Eos % (Auto) 6.5 H Baso % (Auto) 1.0 Neut # (Auto) 1.2 L Lymph # (Auto) 2.9 [place] # (Auto) 0.3 Eos # (Auto) 0.3 Baso # (Auto) 0.0 Sodium 138 Potassium 3.6 Chloride 105 Carbon Dioxide 22 Anion Gap 15 BUN 16 Creatinine 0.8 Est GFR ( Amer) > 60 Est GFR (Non-Af Amer) > 60 Random Glucose 113 H Calcium 9.2 Total Bilirubin 0.3 AST 17 ALT 15 L Alkaline Phosphatase 70 Total Protein 7.1 Albumin 4.2 Globulin 3.0 Albumin/Globulin Ratio 1.4 Lipase 203 Urine Color Yellow Urine Clarity Clear Urine pH 5.0 Ur Specific [place] 1.021 Urine Protein Negative Urine Glucose (UA) Normal Urine Ketones Negative Urine Blood Negative Urine Nitrate Negative Urine Bilirubin Negative Urine Urobilinogen Normal Ur Leukocyte Esterase Trace Urine WBC (Auto) 2 Urine RBC (Auto) 1 Ur Squamous Epith Cells < 1 Assessment & Plan - Assessment and Plan (Free Text) Assessment: This is a 38 y o male with PMhx nephrolithiasis who presents to the ED with RUQ pain worsening since last evening. Admitted for biliary colic. General Surgery (Dr. Senior) consulted. Plan: Biliary colic -Admit to med/surg -Liquid diet for today; NPO after midnight tomorrow for possible cholecystectomy with Surgery -General Surgery, Dr. Senior consulted, recs appreciated -No leukocytosis, transaminitis, or hyperbilirubinemia on admission labs -Lipase wnl -Dilaudid prn for pain -LR @ 125 cc/hr -Zofran prn for nausea -Zosyn 3.375 g IVPB q6h -Pending A1c and lipid panel PPX: -GI: Protonix daily -DVT: SCD Pt seen, examined with, and plan discussed with Dr. Kevin, attending physician. Zackery Arenas DO PGY-1, [employer] Pager #[phone] <Tiffany Kevin - Last Filed: 10/18/18 19:55> Results - Vital Signs Recent Vital Signs: Last Vital Signs Temp 97.8 F 10/18/18 18:40 Pulse 59 L 10/18/18 18:40 Resp 20 10/18/18 18:40 BP 120/72 10/18/18 18:40 Pulse Ox 99 10/18/18 18:40 - Labs Result Diagrams: 10/18/18 09:39 10/18/18 09:39 Labs: Laboratory Results - last 24 hr 10/18/18 10/18/18 10/18/18 09:39 09:39 10:55 WBC 4.8 RBC 4.72 Hgb 14.1 Hct 40.6 MCV 86.0 MCH 29.8 MCHC 34.6 RDW 13.2 Plt Count 217 MPV 8.0 Neut % (Auto) 25.8 L Lymph % (Auto) 59.6 H [place] % (Auto) 7.1 Eos % (Auto) 6.5 H Baso % (Auto) 1.0 Neut # (Auto) 1.2 L Lymph # (Auto) 2.9 [place] # (Auto) 0.3 Eos # (Auto) 0.3 Baso # (Auto) 0.0 Sodium 138 Potassium 3.6 Chloride 105 Carbon Dioxide 22 Anion Gap 15 BUN 16 Creatinine 0.8 Est GFR ( Amer) > 60 Est GFR (Non-Af Amer) > 60 Random Glucose 113 H Calcium 9.2 Total Bilirubin 0.3 AST 17 ALT 15 L Alkaline Phosphatase 70 Total Protein 7.1 Albumin 4.2 Globulin 3.0 Albumin/Globulin Ratio 1.4 Lipase 203 Urine Color Yellow Urine Clarity Clear Urine pH 5.0 Ur Specific [place] 1.021 Urine Protein Negative Urine Glucose (UA) Normal Urine Ketones Negative Urine Blood Negative Urine Nitrate Negative Urine Bilirubin Negative Urine Urobilinogen Normal Ur Leukocyte Esterase Trace Urine WBC (Auto) 2 Urine RBC (Auto) 1 Ur Squamous Epith Cells < 1 Attending/Attestation - Attestation I have personally seen and examined this patient.: Yes I have fully participated in the care of the patient.: Yes I have reviewed all pertinent clinical information: Yes Notes (Text): seen and examined with the resident Biliary colic,Gall bladder neck stone going for surgery tomorrow
[2018-10-18] MEDS ORDERED: Piperacillin/Tazobact 3.375 gm 100 ML IVPB ONE (16:39)
[2018-10-18] MEDS: Piperacillin/Tazobact 3.375 GM in Sodium Chloride 100 ML IVPB SCH ×2 (16:40→21:11)
[2018-10-18] MEDS: Lactated Ringer's 1,000 ML IV SCH ×2 (16:42→21:45)
[2018-10-18 18:49] VITALS: RESP 20
[2018-10-18 23:20] VITALS: O2SAT 98
[2018-10-19] MEDS: Piperacillin/Tazobact 3.375 GM in Sodium Chloride 100 ML IVPB SCH ×2 (02:38→10:04)
[2018-10-19] MEDS: Lactated Ringer's 1,000 ML IV SCH (04:23)
[2018-10-19 07:09] LABS: BASO # 0.1 K/uL (0.0-0.2); BASO % 1.2 % (0.0-2.0); EOS # 0.3 K/uL (0.0-0.7); EOS % 6.5 % (0.0-4.0); HEMOGLOBIN 13.6 g/dL (12.0-18.0); LYMPH # 2.6 K/uL (1.0-4.3); LYMPH % 59.4 % (20.0-40.0); MEAN CELL VOLUME 85.8 fL (80.0-94.0); MEAN CORPUSCULAR HEMOGLOBIN 30.3 pg (27.0-31.0); MEAN CORPUSCULAR HGB CONC 35.3 g/dL (33.0-37.0); MEAN PLATELET VOLUME 7.9 fL (7.2-11.7); MONO # 0.3 K/uL (0.0-0.8); MONO % 6.6 % (0.0-10.0); NEUT # 1.2 K/uL (1.8-7.0); NEUT % 26.3 % (50.0-75.0); NRBC % 0.1 % (0.0-2.0); RBC 4.49 Mil/uL (4.40-5.90); RED CELL DISTRIBUTION WIDTH 13.1 % (11.5-14.5); WHITE BLOOD COUNT 4.4 K/uL (4.8-10.8)
[2018-10-19 07:13] LABS: INR 1.2; PARTIAL THROMBOPLASTIN TIME 32.8 SECONDS (21-34); PROTHROMBIN TIME 12.7 SECONDS (9.7-12.2)
[2018-10-19 07:39] LABS: LDL CHOLESTEROL 135 mg/dL (0-129)
[2018-10-19 07:45] LABS: ALB/GLOB RATIO 1.5 (1.0-2.1); ALBUMIN 3.6 g/dL (3.5-5.0); ALT/SGPT 20 U/L (21-72); AST/SGOT 20 U/L (17-59); BLOOD UREA NITROGEN 11 mg/dL (9-20); CALCIUM 9.1 mg/dl (8.6-10.4); GFR NON-AFRICAN AMERICAN > 60; HDL CHOLESTEROL 30 mg/dL (30-70)
[2018-10-19 07:56] VITALS: BP 109/69; PULSE 60; TEMP 98
--- NOTE | 2018-10-19 07:56 | CP.PCM.PN ---
Objective - Vital Signs/Intake and Output Vital Signs (last 24 hours): Temp Pulse Resp BP Pulse Ox 97.9 F 51 L 20 121/70 98 10/18/18 23:15 10/18/18 23:15 10/18/18 23:15 10/18/18 23:15 10/18/18 23:15 Intake and Output: 10/19/18 10/19/18 06:59 18:59 Intake Total 2240 Balance 2240 - Medications Medications: Current Medications Hydromorphone HCl (Dilaudid) 0.5 mg IVP Q4H PRN PRN Reason: Pain, moderate (4-7) Piperacillin Sod/Tazobactam (Sod 3.375 gm/ Sodium Chloride) 100 mls @ 200 mls/hr IVPB Q6H [facility]; Protocol Last Admin: 10/19/18 02:38 Dose: 200 mls/hr Lactated Ringer's (Lactated Ringer's) 1,000 mls @ 125 mls/hr IV .Q8H [facility] Last Admin: 10/19/18 04:23 Dose: 125 mls/hr Nicotine (Nicoderm Cq) 1 patch TD DAILY [facility] Last Admin: 10/18/18 17:59 Dose: 1 patch Ondansetron HCl (Zofran Inj) 4 mg IVP Q6H PRN PRN Reason: Nausea/Vomiting Pantoprazole Sodium (Protonix Inj) 40 mg IVP DAILY [facility] Last Admin: 10/18/18 16:45 Dose: 40 mg Pneumococcal Polyvalent Vaccine (Pneumovax 23 Vaccine) 0.5 ml IM .ONCE ONE Stop: 10/21/18 10:01 - Labs Labs: 10/19/18 06:53 10/19/18 06:53 PT 12.7 SECONDS (9.7-12.2) H 10/19/18 06:53 INR 1.2 10/19/18 06:53 APTT 32.8 SECONDS (21-34) 10/19/18 06:53
--- NOTE | 2018-10-19 10:09 | RAD ---
Date of service: 10/19/2018 HISTORY: preop COMPARISON: No prior. FINDINGS: LUNGS: No active pulmonary disease. PLEURA: No significant pleural effusion identified, no pneumothorax apparent. CARDIOVASCULAR: No aortic atherosclerotic calcification present. Normal cardiac size. OSSEOUS STRUCTURES: No significant abnormalities. VISUALIZED UPPER ABDOMEN: Normal. OTHER FINDINGS: None. IMPRESSION: No active disease.
--- NOTE | 2018-10-19 11:23 | CP.PCM.PN ---
Subjective - Date & Time of Evaluation Date of Evaluation: 10/19/18 Time of Evaluation: 08:00 - Subjective Subjective: General surgery progress note for Dr. Senior-Janessa Sanches, PGY-2 Pt seen/examined at bedside. Pt reports RUQ abdominal pain resolved after stopping eating. Denies N & V, F & C, SOB, CP. Objective - Vital Signs/Intake and Output Vital Signs (last 24 hours): Temp Pulse Resp BP Pulse Ox 98 F 60 20 109/69 98 10/19/18 07:55 10/19/18 07:55 10/19/18 07:55 10/19/18 07:55 10/19/18 07:55 Intake and Output: 10/19/18 10/19/18 06:59 18:59 Intake Total 2240 Balance 2240 - Medications Medications: Current Medications Hydromorphone HCl (Dilaudid) 0.5 mg IVP Q4H PRN PRN Reason: Pain, moderate (4-7) Piperacillin Sod/Tazobactam (Sod 3.375 gm/ Sodium Chloride) 100 mls @ 200 mls/hr IVPB Q6H [facility]; Protocol Last Admin: 10/19/18 10:04 Dose: 200 mls/hr Lactated Ringer's (Lactated Ringer's) 1,000 mls @ 125 mls/hr IV .Q8H [facility] Last Admin: 10/19/18 04:23 Dose: 125 mls/hr Nicotine (Nicoderm Cq) 1 patch TD DAILY [facility] Last Admin: 10/19/18 11:02 Dose: 1 patch Ondansetron HCl (Zofran Inj) 4 mg IVP Q6H PRN PRN Reason: Nausea/Vomiting Pantoprazole Sodium (Protonix Inj) 40 mg IVP DAILY [facility] Last Admin: 10/19/18 11:02 Dose: 40 mg Pneumococcal Polyvalent Vaccine (Pneumovax 23 Vaccine) 0.5 ml IM .ONCE ONE Stop: 10/21/18 10:01 - Labs Labs: 10/19/18 06:53 10/19/18 06:53 PT 12.7 SECONDS (9.7-12.2) H 10/19/18 06:53 INR 1.2 10/19/18 06:53 APTT 32.8 SECONDS (21-34) 10/19/18 06:53 - Constitutional Appears: Non-toxic, No Acute Distress - Head Exam Head Exam: ATRAUMATIC, NORMAL INSPECTION, NORMOCEPHALIC - Eye Exam Eye Exam: EOMI, Normal appearance - ENT Exam ENT Exam: Mucous Membranes Moist, Normal Exam - Neck Exam Neck Exam: Full ROM, Normal Inspection - Respiratory Exam Respiratory Exam: NORMAL BREATHING PATTERN - Cardiovascular Exam Cardiovascular Exam: REGULAR RHYTHM, +S1, +S2 - GI/Abdominal Exam GI & Abdominal Exam: Soft. absent: Distended, Firm, Guarding, Rigid, Tenderness - Extremities Exam Extremities Exam: Normal Inspection - Neurological Exam Neurological Exam: Alert, Awake, CN II-XII Intact, Oriented x3 - Psychiatric Exam Psychiatric exam: Normal Affect, Normal Mood - Skin Skin Exam: Dry, Intact, Normal Color, Warm Assessment and Plan - Assessment and Plan (Free Text) Assessment: 38M w/symptomatic cholelithiasis Plan: Pt for elective cholecystectomy-LFTs and T bili WNL Pain control PRN Ok for low fat diet OOBTC Ambulate Please schedule an appointment with Dr. Senior this week to schedule a time for elective surgey next week CHIN Sanches, PGY-2
--- NOTE | 2018-10-19 13:44 | CP.PCM.DIS ---
Provider - Provider Date of Admission: 10/18/18 14:05 Attending physician: Miguel Valdovinos DO Consults: 10/18/18 14:06 General Surgery Consult Stat Comment: Consulting Provider: Escobar Senior Consulting Physician: Escobar Senior Reason for Consult: biliary colic Hospital Course - Lab Results Lab Results: Most Recent Lab Values WBC 4.4 K/uL (4.8-10.8) L 10/19/18 06:53 RBC 4.49 Mil/uL (4.40-5.90) 10/19/18 06:53 Hgb 13.6 g/dL (12.0-18.0) 10/19/18 06:53 Hct 38.5 % (35.0-51.0) 10/19/18 06:53 MCV 85.8 fL (80.0-94.0) 10/19/18 06:53 MCH 30.3 pg (27.0-31.0) 10/19/18 06:53 MCHC 35.3 g/dL (33.0-37.0) 10/19/18 06:53 RDW 13.1 % (11.5-14.5) 10/19/18 06:53 Plt Count 214 K/uL (130-400) 10/19/18 06:53 MPV 7.9 fL (7.2-11.7) 10/19/18 06:53 Neut % (Auto) 26.3 % (50.0-75.0) L 10/19/18 06:53 Lymph % (Auto) 59.4 % (20.0-40.0) H 10/19/18 06:53 [place] % (Auto) 6.6 % (0.0-10.0) 10/19/18 06:53 Eos % (Auto) 6.5 % (0.0-4.0) H 10/19/18 06:53 Baso % (Auto) 1.2 % (0.0-2.0) 10/19/18 06:53 Neut # (Auto) 1.2 K/uL (1.8-7.0) L 10/19/18 06:53 Lymph # (Auto) 2.6 K/uL (1.0-4.3) 10/19/18 06:53 [place] # (Auto) 0.3 K/uL (0.0-0.8) 10/19/18 06:53 Eos # (Auto) 0.3 K/uL (0.0-0.7) 10/19/18 06:53 Baso # (Auto) 0.1 K/uL (0.0-0.2) 10/19/18 06:53 PT 12.7 SECONDS (9.7-12.2) H 10/19/18 06:53 INR 1.2 10/19/18 06:53 APTT 32.8 SECONDS (21-34) 10/19/18 06:53 Sodium 141 mmol/L (132-148) 10/19/18 06:53 Potassium 3.8 mmol/L (3.6-5.2) 10/19/18 06:53 Chloride 108 mmol/L (98-107) H 10/19/18 06:53 Carbon Dioxide 24 mmol/L (22-30) 10/19/18 06:53 Anion Gap 13 (10-20) 10/19/18 06:53 BUN 11 mg/dL (9-20) 10/19/18 06:53 Creatinine 0.8 mg/dL (0.8-1.5) 10/19/18 06:53 Est GFR ( Amer) > 60 10/19/18 06:53 Est GFR (Non-Af Amer) > 60 10/19/18 06:53 Random Glucose 93 mg/dL (75-110) 10/19/18 06:53 Hemoglobin A1c 5.8 % (4.2-6.5) 10/19/18 06:53 Calcium 9.1 mg/dl (8.6-10.4) 10/19/18 06:53 Phosphorus 4.4 mg/dL (2.5-4.5) 10/19/18 06:53 Magnesium 1.8 mg/dL (1.6-2.3) 10/19/18 06:53 Total Bilirubin 0.4 mg/dL (0.2-1.3) 10/19/18 06:53 AST 20 U/L (17-59) 10/19/18 06:53 ALT 20 U/L (21-72) L D 10/19/18 06:53 Alkaline Phosphatase 67 U/L (38-126) 10/19/18 06:53 Total Protein 6.0 g/dL (6.3-8.3) L 10/19/18 06:53 Albumin 3.6 g/dL (3.5-5.0) 10/19/18 06:53 Globulin 2.4 gm/dL (2.2-3.9) 10/19/18 06:53 Albumin/Globulin Ratio 1.5 (1.0-2.1) 10/19/18 06:53 Triglycerides 145 mg/dL (0-149) 10/19/18 06:53 Cholesterol 187 mg/dL (0-199) 10/19/18 06:53 LDL Cholesterol Direct 135 mg/dL (0-129) H 10/19/18 06:53 HDL Cholesterol 30 mg/dL (30-70) 10/19/18 06:53 Lipase 203 U/L (23-300) 10/18/18 09:39 Urine Color Yellow (YELLOW) 10/18/18 10:55 Urine Clarity Clear (Clear) 10/18/18 10:55 Urine pH 5.0 (5.0-8.0) 10/18/18 10:55 Ur Specific [place] 1.021 (1.003-1.030) 10/18/18 10:55 Urine Protein Negative mg/dL (NEGATIVE) 10/18/18 10:55 Urine Glucose (UA) Normal mg/dL (Normal) 10/18/18 10:55 Urine Ketones Negative mg/dL (NEGATIVE) 10/18/18 10:55 Urine Blood Negative (NEGATIVE) 10/18/18 10:55 Urine Nitrate Negative (NEGATIVE) 10/18/18 10:55 Urine Bilirubin Negative (NEGATIVE) 10/18/18 10:55 Urine Urobilinogen Normal mg/dL (0.2-1.0) 10/18/18 10:55 Ur Leukocyte Esterase Trace [place]/uL (Negative) 10/18/18 10:55 Urine WBC (Auto) 2 /hpf (0-5) 10/18/18 10:55 Urine RBC (Auto) 1 /hpf (0-3) 10/18/18 10:55 Ur Squamous Epith Cells < 1 /hpf (0-5) 10/18/18 10:55 Blood Type B POSITIVE 10/19/18 06:53 Antibody Screen Negative 10/19/18 06:53 Discharge Exam - Head Exam Head Exam: ATRAUMATIC, NORMAL INSPECTION, NORMOCEPHALIC Discharge Plan - Follow Up Plan Condition: FAIR Disposition: HOME/ ROUTINE Instructions: Low Cholesterol, Saturated Fat, and Trans Fat Diet , Gallstones (DC) Additional Instructions: Avoid fatty foods like pizza, ice cream, butter, oils Please call Dr. Senior's office to see him this week to schedule your surgery for next week Referrals: Escobar Senior MD [Staff Provider] -
--- NOTE | 2018-10-19 13:53 | CP.PCM.PN ---
Subjective - Date & Time of Evaluation Date of Evaluation: 10/19/18 Time of Evaluation: 13:53 Objective - Vital Signs/Intake and Output Vital Signs (last 24 hours): Temp Pulse Resp BP Pulse Ox 98 F 60 20 109/69 98 10/19/18 07:55 10/19/18 07:55 10/19/18 07:55 10/19/18 07:55 10/19/18 07:55 Intake and Output: 10/19/18 10/19/18 06:59 18:59 Intake Total 2240 Balance 2240 - Medications Medications: Current Medications Hydromorphone HCl (Dilaudid) 0.5 mg IVP Q4H PRN PRN Reason: Pain, moderate (4-7) Piperacillin Sod/Tazobactam (Sod 3.375 gm/ Sodium Chloride) 100 mls @ 200 mls/hr IVPB Q6H ANITHA; Protocol Last Admin: 10/19/18 10:04 Dose: 200 mls/hr Lactated Ringer's (Lactated Ringer's) 1,000 mls @ 125 mls/hr IV .Q8H ANITHA Last Admin: 10/19/18 04:23 Dose: 125 mls/hr Nicotine (Nicoderm Cq) 1 patch TD DAILY [facility] Last Admin: 10/19/18 11:02 Dose: 1 patch Ondansetron HCl (Zofran Inj) 4 mg IVP Q6H PRN PRN Reason: Nausea/Vomiting Pantoprazole Sodium (Protonix Inj) 40 mg IVP DAILY [facility] Last Admin: 10/19/18 11:02 Dose: 40 mg Pneumococcal Polyvalent Vaccine (Pneumovax 23 Vaccine) 0.5 ml IM .ONCE ONE Stop: 10/21/18 10:01 - Labs Labs: 10/19/18 06:53 10/19/18 06:53 PT 12.7 SECONDS (9.7-12.2) H 10/19/18 06:53 INR 1.2 10/19/18 06:53 APTT 32.8 SECONDS (21-34) 10/19/18 06:53
--- NOTE | 2018-10-19 13:56 | CP.PCM.DIS ---
<Rick Del Castillo - Last Filed: 10/19/18 15:17> Provider - Provider Date of Admission: 10/18/18 14:05 Attending physician: Miguel Valdovinos DO Consults: 10/18/18 14:06 General Surgery Consult Stat Comment: Consulting Provider: Escobar Senior Consulting Physician: Escobar Senior Reason for Consult: biliary colic Time Spent in preparation of Discharge (in minutes): 35 Diagnosis - Discharge Diagnosis (1) Biliary colic Status: Acute Hospital Course - Lab Results Lab Results: Most Recent Lab Values WBC 4.4 K/uL (4.8-10.8) L 10/19/18 06:53 RBC 4.49 Mil/uL (4.40-5.90) 10/19/18 06:53 Hgb 13.6 g/dL (12.0-18.0) 10/19/18 06:53 Hct 38.5 % (35.0-51.0) 10/19/18 06:53 MCV 85.8 fL (80.0-94.0) 10/19/18 06:53 MCH 30.3 pg (27.0-31.0) 10/19/18 06:53 MCHC 35.3 g/dL (33.0-37.0) 10/19/18 06:53 RDW 13.1 % (11.5-14.5) 10/19/18 06:53 Plt Count 214 K/uL (130-400) 10/19/18 06:53 MPV 7.9 fL (7.2-11.7) 10/19/18 06:53 Neut % (Auto) 26.3 % (50.0-75.0) L 10/19/18 06:53 Lymph % (Auto) 59.4 % (20.0-40.0) H 10/19/18 06:53 [place] % (Auto) 6.6 % (0.0-10.0) 10/19/18 06:53 Eos % (Auto) 6.5 % (0.0-4.0) H 10/19/18 06:53 Baso % (Auto) 1.2 % (0.0-2.0) 10/19/18 06:53 Neut # (Auto) 1.2 K/uL (1.8-7.0) L 10/19/18 06:53 Lymph # (Auto) 2.6 K/uL (1.0-4.3) 10/19/18 06:53 [place] # (Auto) 0.3 K/uL (0.0-0.8) 10/19/18 06:53 Eos # (Auto) 0.3 K/uL (0.0-0.7) 10/19/18 06:53 Baso # (Auto) 0.1 K/uL (0.0-0.2) 10/19/18 06:53 PT 12.7 SECONDS (9.7-12.2) H 10/19/18 06:53 INR 1.2 10/19/18 06:53 APTT 32.8 SECONDS (21-34) 10/19/18 06:53 Sodium 141 mmol/L (132-148) 10/19/18 06:53 Potassium 3.8 mmol/L (3.6-5.2) 10/19/18 06:53 Chloride 108 mmol/L (98-107) H 10/19/18 06:53 Carbon Dioxide 24 mmol/L (22-30) 10/19/18 06:53 Anion Gap 13 (10-20) 10/19/18 06:53 BUN 11 mg/dL (9-20) 10/19/18 06:53 Creatinine 0.8 mg/dL (0.8-1.5) 10/19/18 06:53 Est GFR ( Amer) > 60 10/19/18 06:53 Est GFR (Non-Af Amer) > 60 10/19/18 06:53 Random Glucose 93 mg/dL (75-110) 10/19/18 06:53 Hemoglobin A1c 5.8 % (4.2-6.5) 10/19/18 06:53 Calcium 9.1 mg/dl (8.6-10.4) 10/19/18 06:53 Phosphorus 4.4 mg/dL (2.5-4.5) 10/19/18 06:53 Magnesium 1.8 mg/dL (1.6-2.3) 10/19/18 06:53 Total Bilirubin 0.4 mg/dL (0.2-1.3) 10/19/18 06:53 AST 20 U/L (17-59) 10/19/18 06:53 ALT 20 U/L (21-72) L D 10/19/18 06:53 Alkaline Phosphatase 67 U/L (38-126) 10/19/18 06:53 Total Protein 6.0 g/dL (6.3-8.3) L 10/19/18 06:53 Albumin 3.6 g/dL (3.5-5.0) 10/19/18 06:53 Globulin 2.4 gm/dL (2.2-3.9) 10/19/18 06:53 Albumin/Globulin Ratio 1.5 (1.0-2.1) 10/19/18 06:53 Triglycerides 145 mg/dL (0-149) 10/19/18 06:53 Cholesterol 187 mg/dL (0-199) 10/19/18 06:53 LDL Cholesterol Direct 135 mg/dL (0-129) H 10/19/18 06:53 HDL Cholesterol 30 mg/dL (30-70) 10/19/18 06:53 Lipase 203 U/L (23-300) 10/18/18 09:39 Urine Color Yellow (YELLOW) 10/18/18 10:55 Urine Clarity Clear (Clear) 10/18/18 10:55 Urine pH 5.0 (5.0-8.0) 10/18/18 10:55 Ur Specific [place] 1.021 (1.003-1.030) 10/18/18 10:55 Urine Protein Negative mg/dL (NEGATIVE) 10/18/18 10:55 Urine Glucose (UA) Normal mg/dL (Normal) 10/18/18 10:55 Urine Ketones Negative mg/dL (NEGATIVE) 10/18/18 10:55 Urine Blood Negative (NEGATIVE) 10/18/18 10:55 Urine Nitrate Negative (NEGATIVE) 10/18/18 10:55 Urine Bilirubin Negative (NEGATIVE) 10/18/18 10:55 Urine Urobilinogen Normal mg/dL (0.2-1.0) 10/18/18 10:55 Ur Leukocyte Esterase Trace [place]/uL (Negative) 10/18/18 10:55 Urine WBC (Auto) 2 /hpf (0-5) 10/18/18 10:55 Urine RBC (Auto) 1 /hpf (0-3) 10/18/18 10:55 Ur Squamous Epith Cells < 1 /hpf (0-5) 10/18/18 10:55 Blood Type B POSITIVE 10/19/18 06:53 Antibody Screen Negative 10/19/18 06:53 - Hospital Course Hospital Course: On admission: This is a 38 y o male with PMhx nephrolithiasis who presents to the ED with RUQ pain worsening since last evening. Pt states that this is the third time that he has had symptoms like this in the past 6 months, and was instructed on prior w/u to return to the ED if his symptoms recurred. States the pain woke him up this am from sleep. Currently denies any abd pain, but states that the pain was sharp and worsened after eating. States he has been avoiding fatty foods since his prior colic episodes. Denies fever, chills, chest pain, sob, n/v/d/c, urinary complaints, or other symptoms. Hospital course: Pt placed NPO. Dr. Senior, surgery, consulted. Pt's LFts are normal, no leukocytosis, tbili is normal. Pt would like to go home. Surgery recommends outpatient followup for elective cholecystectomy. US shows gallstone at the gallbladder neck. No definite ultrasound evidence of acute cholecystitis. Echogenic liver. Multiple nonobstructing right renal calculi. CXR shows no active disease. This is a summary of the hospital course. Please see EMR for full details. Discharge Exam - Additional Findings Additional findings: - Constitutional Appears: Non-toxic, No Acute Distress - Head Exam Head Exam: ATRAUMATIC, NORMOCEPHALIC - Eye Exam Eye Exam: EOMI, Normal appearance - ENT Exam ENT Exam: Mucous Membranes Moist - Neck Exam Neck exam: Positive for: Full Rom, Normal Inspection. Negative for: Lymphadenopathy, Tenderness - Respiratory Exam Respiratory Exam: Clear to Auscultation Bilateral, NORMAL BREATHING PATTERN. absent: Rales, Rhonchi, Wheezes - Cardiovascular Exam Cardiovascular Exam: Bradycardia (approximately 60), REGULAR RHYTHM, +S1, +S2. absent: Gallop, Rubs, Systolic Murmur - GI/Abdominal Exam GI & Abdominal Exam: Normal Bowel Sounds, Soft. absent: Distended, Guarding, Organomegaly, Rebound, Tenderness Additional comments: Negative Wahl's signn - Extremities Exam Extremities exam: Positive for: full ROM, normal capillary refill, normal inspection, pedal pulses present. Negative for: pedal edema, tenderness - Neurological Exam Neurological exam: Alert, Awake, Oriented x3 - Skin Skin Exam: Dry, Intact, Normal Color, Warm Discharge Plan - Follow Up Plan Condition: FAIR Disposition: HOME/ ROUTINE Instructions: Low Cholesterol, Saturated Fat, and Trans Fat Diet , Gallstones (DC), Oxycodone and Acetaminophen, Abdominal Pain (ED) Additional Instructions: Pt is medically stable for discharge home. Prescriptions provided: Percocet 5/325 mg 1 tab every 6 hours as needed for pain. #12 Avoid fatty foods like pizza, ice cream, butter, oils Please call Dr. Senior's office to see him this week to schedule your surgery for next week Should symptoms worsen, please return to the nearest Emergency Department for further evaluation. Instructions explained to the pt, who understands and agrees with discharge plan. Referrals: Escobar Senior MD [Staff Provider] - <Miguel Valdovinos - Last Filed: 10/19/18 15:44> Provider - Provider Date of Admission: 10/18/18 14:05 Attending physician: Miguel Valdovinos DO Consults: 10/18/18 14:06 General Surgery Consult Stat Comment: Consulting Provider: Escobar Senior Consulting Physician: Escobar Senior Reason for Consult: biliary colic Hospital Course - Lab Results Lab Results: Most Recent Lab Values WBC 4.4 K/uL (4.8-10.8) L 10/19/18 06:53 RBC 4.49 Mil/uL (4.40-5.90) 10/19/18 06:53 Hgb 13.6 g/dL (12.0-18.0) 10/19/18 06:53 Hct 38.5 % (35.0-51.0) 10/19/18 06:53 MCV 85.8 fL (80.0-94.0) 10/19/18 06:53 MCH 30.3 pg (27.0-31.0) 10/19/18 06:53 MCHC 35.3 g/dL (33.0-37.0) 10/19/18 06:53 RDW 13.1 % (11.5-14.5) 10/19/18 06:53 Plt Count 214 K/uL (130-400) 10/19/18 06:53 MPV 7.9 fL (7.2-11.7) 10/19/18 06:53 Neut % (Auto) 26.3 % (50.0-75.0) L 10/19/18 06:53 Lymph % (Auto) 59.4 % (20.0-40.0) H 10/19/18 06:53 [place] % (Auto) 6.6 % (0.0-10.0) 10/19/18 06:53 Eos % (Auto) 6.5 % (0.0-4.0) H 10/19/18 06:53 Baso % (Auto) 1.2 % (0.0-2.0) 10/19/18 06:53 Neut # (Auto) 1.2 K/uL (1.8-7.0) L 10/19/18 06:53 Lymph # (Auto) 2.6 K/uL (1.0-4.3) 10/19/18 06:53 [place] # (Auto) 0.3 K/uL (0.0-0.8) 10/19/18 06:53 Eos # (Auto) 0.3 K/uL (0.0-0.7) 10/19/18 06:53 Baso # (Auto) 0.1 K/uL (0.0-0.2) 10/19/18 06:53 PT 12.7 SECONDS (9.7-12.2) H 10/19/18 06:53 INR 1.2 10/19/18 06:53 APTT 32.8 SECONDS (21-34) 10/19/18 06:53 Sodium 141 mmol/L (132-148) 10/19/18 06:53 Potassium 3.8 mmol/L (3.6-5.2) 10/19/18 06:53 Chloride 108 mmol/L (98-107) H 10/19/18 06:53 Carbon Dioxide 24 mmol/L (22-30) 10/19/18 06:53 Anion Gap 13 (10-20) 10/19/18 06:53 BUN 11 mg/dL (9-20) 10/19/18 06:53 Creatinine 0.8 mg/dL (0.8-1.5) 10/19/18 06:53 Est GFR ( Amer) > 60 10/19/18 06:53 Est GFR (Non-Af Amer) > 60 10/19/18 06:53 Random Glucose 93 mg/dL (75-110) 10/19/18 06:53 Hemoglobin A1c 5.8 % (4.2-6.5) 10/19/18 06:53 Calcium 9.1 mg/dl (8.6-10.4) 10/19/18 06:53 Phosphorus 4.4 mg/dL (2.5-4.5) 10/19/18 06:53 Magnesium 1.8 mg/dL (1.6-2.3) 10/19/18 06:53 Total Bilirubin 0.4 mg/dL (0.2-1.3) 10/19/18 06:53 AST 20 U/L (17-59) 10/19/18 06:53 ALT 20 U/L (21-72) L D 10/19/18 06:53 Alkaline Phosphatase 67 U/L (38-126) 10/19/18 06:53 Total Protein 6.0 g/dL (6.3-8.3) L 10/19/18 06:53 Albumin 3.6 g/dL (3.5-5.0) 10/19/18 06:53 Globulin 2.4 gm/dL (2.2-3.9) 10/19/18 06:53 Albumin/Globulin Ratio 1.5 (1.0-2.1) 10/19/18 06:53 Triglycerides 145 mg/dL (0-149) 10/19/18 06:53 Cholesterol 187 mg/dL (0-199) 10/19/18 06:53 LDL Cholesterol Direct 135 mg/dL (0-129) H 10/19/18 06:53 HDL Cholesterol 30 mg/dL (30-70) 10/19/18 06:53 Lipase 203 U/L (23-300) 10/18/18 09:39 Urine Color Yellow (YELLOW) 10/18/18 10:55 Urine Clarity Clear (Clear) 10/18/18 10:55 Urine pH 5.0 (5.0-8.0) 10/18/18 10:55 Ur Specific [place] 1.021 (1.003-1.030) 10/18/18 10:55 Urine Protein Negative mg/dL (NEGATIVE) 10/18/18 10:55 Urine Glucose (UA) Normal mg/dL (Normal) 10/18/18 10:55 Urine Ketones Negative mg/dL (NEGATIVE) 10/18/18 10:55 Urine Blood Negative (NEGATIVE) 10/18/18 10:55 Urine Nitrate Negative (NEGATIVE) 10/18/18 10:55 Urine Bilirubin Negative (NEGATIVE) 10/18/18 10:55 Urine Urobilinogen Normal mg/dL (0.2-1.0) 10/18/18 10:55 Ur Leukocyte Esterase Trace [place]/uL (Negative) 10/18/18 10:55 Urine WBC (Auto) 2 /hpf (0-5) 10/18/18 10:55 Urine RBC (Auto) 1 /hpf (0-3) 10/18/18 10:55 Ur Squamous Epith Cells < 1 /hpf (0-5) 10/18/18 10:55 Blood Type B POSITIVE 10/19/18 06:53 Antibody Screen Negative 10/19/18 06:53 Attending/Attestation - Attestation I have personally seen and examined this patient.: Yes I have fully participated in the care of the patient.: Yes I have reviewed all pertinent clinical information, including history, physical exam and plan: Yes Notes (Text): 10/19/18 15:42 Medical attending: Patient was seen and examined by me. Agree with the above note by the resident Patient will be discharged today. I spoke with surgery and surgery wanted to do OR for tomorrow in the morning. Intially the patient wanted to go home, but changed his mind when I came back and told him the surgery would be tommorow. Shortly thereafter the RNs called me again to his room and this time he explained he really wanted to be discharged. Miguel Valdovinos
[2018-10-21] MEDS ORDERED: Pneumococcal 23-Valent Vaccine IM ONE (10:00)
== END 2018-10-19 15:41 | disposition home or self-care (01) ==
LOC: C.ER 09:06 → C.9E 14:05 → C.3T 17:56
PROVIDERS: ADMIT Hospitalist; ATTEND Hospitalist
DX: K80.20 Calculus of gallbladder without cholecystitis without obstruction (principal); N18.9 Chronic kidney disease, unspecified; N20.0 Calculus of kidney; Z87.442 Personal history of urinary calculi; E11.22 Type 2 diabetes mellitus with diabetic chronic kidney disease; I12.9 Hypertensive chronic kidney disease with stage 1 through stage 4 chronic kidney disease, or unspecified chronic kidney disease; F17.210 Nicotine dependence, cigarettes, uncomplicated
CPT/HCPCS: 36415; 71045; 76705; 80053; 80061; 81001; 83036; 83690; 83735; 84100; 85025; 85610; 85730; 86850; 86900; 96360; 96365; 96374; 99285; C9113; G0378; J1885; J2405; J2543; J7030; J7120